=== PATIENT | female | born 1965 | race Caucasian/White ===

== ENCOUNTER → 2020-05-20 | Outpatient (CLI) | payer OTHER ==
--- NOTE | 2020-05-20 13:36 | RAD ---
2 views of each knee without comparison for bilateral knee pain, injury to left knee at age 18. TECHNIQUE AND FINDINGS: There is no fracture, dislocation, or acute osseous abnormality identified. N o significant degenerative changes. No joint effusion. IMPRESSION: 1. No acute osseous abnormality. Electronically signed by: Lorenzo Hammond MD (05/20/2020 1:33 PM) [id number]
== END ==
LOC: RAD 08:38
PROVIDERS: ATTEND Family Medicine
DX: M25.561 Pain in right knee (principal); M25.562 Pain in left knee
CPT/HCPCS: 73560